=== PATIENT | male | born 1985 | race Hispanic/Latino ===

== ENCOUNTER → 2019-04-13 | Outpatient (ROUT) | payer SELFPAY | PROVIDERS: Visit Provider Physician Assistant | CPT/HCPCS: 87252 ==

== ENCOUNTER → 2019-04-29 12:12 | Outpatient (CLI) | payer SELFPAY | PROVIDERS: Visit Provider Physician Assistant | DX: R39.89 Other symptoms and signs involving the genitourinary system (principal) | CPT/HCPCS: 87252; 87255 ==